=== PATIENT | male | born 1985 ===

== ENCOUNTER 2025-02-22 13:53 | Outpatient (CLI) | payer OTHER | END 2025-02-22 17:00 | disposition home or self-care (01) | LOC: Rad HDHVI 13:53 | PROVIDERS: ATTEND Internal Medicine Cardiovascular Disease | DX: I10 Essential (primary) hypertension (principal) | CPT/HCPCS: 93306 ==

== ENCOUNTER 2025-02-27 08:56 | Outpatient (CLI) | payer OTHER ==
[~2025-02-27] VITALS: Ht 180.3 cm; Wt 93.0 kg
== END 2025-02-27 17:00 | disposition home or self-care (01) ==
LOC: Rad HDHVI 08:56
PROVIDERS: ATTEND Internal Medicine Cardiovascular Disease
DX: I11.9 Hypertensive heart disease without heart failure (principal); R07.89 Other chest pain
CPT/HCPCS: 78452; 93017